=== PATIENT | male | born 1990 ===

== ENCOUNTER 2020-05-20 13:29 | Emergency (ER) | payer OTHER ==
[~2020-05-20] VITALS: Ht 170.2 cm; Wt 58.0 kg
[2020-05-20] MEDS ORDERED: ONDANSETRON 4 MG (ZOFRAN) ORAL DISSOLVE TAB PO STA (14:18)
--- NOTE | 2020-05-20 14:18 | ED Abdominal Pain ---
General Chief Complaint: Abdominal/GI Problems Stated Complaint: ABD PAIN Nursing Triage Note: PT AMB TO [facility] 8 WITH COMPLAINT OF LLQ PAIN FOR TWO DAYS. STATES HAS BEEN HAVING DIARRHEA. Sepsis Screen: No Definite Risk Source of Information: Patient Exam Limitations: No Limitations History of Present Illness Date Seen by Provider: May 20, 2020 Time Seen by Provider: 14:16 Initial Comments Patient is a 29-year-old male who presents to the emergency department today with a chief complaint of left flank pain onset 2 days ago [facility] that was approximately 16 hours long. Patient thinks that he ate some bad food on the airplane. Patient states that he has had diarrhea for the last 2 days but states only a couple of times a day and it is "like water". Patient states that he is nauseated when he attempts to eat food. He denies any fevers or chills. He denies any black or bloody stools. He has not actually vomited. Patient states he is able to drink okay. He states normal urination. All other review of systems reviewed and negative except as stated. Timing/Duration: 1-2 Days Severity/Quality: Moderate, Cramping Location: LUQ, LLQ Radiation: No Radiation Activities at Onset: None Modifying Factors: Improves With Other (Patient states he has been taking a probiotic) Associated Symptoms: Nausea/Vomiting (Nausea without vomiting) Allergies and Home Medications Allergies Coded Allergies: No Known Drug Allergies (Unverified , 05/20/20) Patient Home Medication List Home Medication List Reviewed: Yes Review of Systems Review of Systems Constitutional: see HPI EENTM: No Symptoms Reported Cardiovascular: No Symptoms Reported Gastrointestinal: Abdominal Pain, Diarrhea, Nausea, Poor Appetite Genitourinary: No Symptoms Reported Musculoskeletal: no symptoms reported Skin: no symptoms reported Psychiatric/Neurological: No Symptoms Reported All Other Systems Reviewed Negative Unless Noted: Yes Past Welkqjd-Oyesip-Flbgsm Hx Patient Social History Alcohol Use: Denies Use Smoking Status: Never a Smoker Recent Infectious Disease Expo: No Recent Hopitalizations: No Immunizations Up To Date Tetanus Booster (TDap): Unknown Seasonal Allergies Seasonal Allergies: No Past Medical History Surgeries: Yes Nose Respiratory: No Cardiac: No Neurological: No Genitourinary: No Gastrointestinal: No Musculoskeletal: No Endocrine: No HEENT: No Cancer: No Psychosocial: No Integumentary: No Blood Disorders: No Physical Exam Vital Signs Vital Signs - First Documented 05/20/20 13:41 Temp 36.6 Pulse 90 Resp 20 B/P (MAP) 141/92 (108) Pulse Ox 97 O2 Delivery Room Air Capillary Refill : Less Than 3 Seconds Height/Weight/BMI Height: '" Weight: lbs. oz. kg; 20.00 BMI Method: General Appearance: WD/WN, no apparent distress HEENT: PERRL/EOMI Neck: full range of motion Respiratory: lungs clear, normal breath sounds, no respiratory distress, no accessory muscle use Cardiovascular: regular rate, rhythm Gastrointestinal: soft, abnormal bowel sounds (Hyperactive bowel sounds), tenderness (Mild tenderness over the left flank to palpation) Extremities: non-tender, normal inspection, no pedal edema, no calf tenderness Neurologic/Psychiatric: alert, normal mood/affect, oriented x 3 Skin: normal color, warm/dry Progress/Results/Core Measures Results/Orders Lab Results Laboratory Tests Test 05/20/20 14:30 Range/Units Sodium Level 140 135-145 MMOL/L Potassium Level 3.6 3.6-5.0 MMOL/L Chloride Level 104 98-107 MMOL/L Carbon Dioxide Level 25 21-32 MMOL/L Anion Gap 11 5-14 MMOL/L Blood Urea Nitrogen 8 7-18 MG/DL Creatinine 0.89 0.60-1.30 MG/DL Estimat Glomerular Filtration Rate > 60 BUN/Creatinine Ratio 9 Glucose Level 102 70-105 MG/DL Calcium Level 9.1 8.5-10.1 MG/DL My Orders Orders - LELIA JULIO MD Basic Metabolic Panel (05/20/20 14:16) Ondansetron Oral Dissolve Tab (Zofran (05/20/20 14:18) Dicyclomine Capsule (Bentyl Capsule) (05/20/20 14:30) Vital Signs/I&O 05/20/20 13:41 Temp 36.6 Pulse 90 Resp 20 B/P (MAP) 141/92 (108) Pulse Ox 97 O2 Delivery Room Air Blood Pressure Mean: 108 Progress Progress Note : Time: 15:37 Progress Note Reevaluated patient after medications Zofran and Bentyl. Patient states that he is feeling better. Labs reviewed within normal limits. Patient will be sent home with prescriptions for Zofran and Bentyl. He is encouraged to drink plenty of fluids to stay well-hydrated. He verbalizes understanding. All questions are sought and answered and he is stable for discharge. Departure Impression Primary Impression: Gastroenteritis Disposition: 01 HOME, SELF-CARE Condition: Stable Departure-Patient Inst. Decision time for Depature: 15:39 Referrals: [facility] [place],LOCAL PHYSICIAN (PCP) Primary Care Physician Patient Instructions: Viral Gastroenteritis, Adult (DC) Add. Discharge Instructions: Drink plenty of fluids to stay well-hydrated. Take the Zofran/ondansetron every 8 hours as needed for nausea and upset stomach. Take the Bentyl/dicyclomine every 6 hours as needed for abdominal cramping and pain. Please return to the emergency room within 24 hours if you have worsening symptoms of abdominal pain, nausea vomiting, fever or any other emergent concerning symptoms. Scripts Dicyclomine HCl (Dicyclomine HCl) 20 Mg Tablet 20 MG PO Q6H for Abdominal Pain, #20 TAB Prov: LELIA JULIO MD 05/20/20 Ondansetron (Ondansetron Odt) 4 Mg Tab.rapdis 4 MG PO Q8H PRN for nausea, #20 TAB Prov: LELIA JULIO MD 05/20/20 LELIA JULIO MD May 20, 2020 14:18
[2020-05-20] MEDS ORDERED: DICYCLOMINE 10 MG (BENTYL) CAP PO SCH (14:30)
[2020-05-20 14:52] LABS: CHLORIDE 104 MMOL/L (98-107); POTASSIUM 3.6 MMOL/L (3.6-5.0); SODIUM 140 MMOL/L (135-145)
[2020-05-20 14:54] LABS: CALCIUM 9.1 MG/DL (8.5-10.1); GLUCOSE 102 MG/DL (70-105)
[2020-05-20 14:56] LABS: CARBON DIOXIDE 25 MMOL/L (21-32)
[2020-05-20 14:58] LABS: CREATININE SERUM 0.89 MG/DL (0.60-1.30); GFR ESTIMATED > 60
[2020-05-20 14:59] LABS: BUN/CREATININE RATIO 9
[2020-05-20] MEDS ORDERED: DICY20TA10 PO (15:39)
[2020-05-20] MEDS ORDERED: ONDA4TAB11 PO (15:39)
[2020-05-20 15:47] VITALS: BP 135/86
== END 2020-05-20 15:47 | disposition home or self-care (01) ==
LOC: ER 13:31
DX: K52.9 Noninfective gastroenteritis and colitis, unspecified (principal)
CPT/HCPCS: 36415; 80048